=== PATIENT | female | born 2000 | race Caucasian/White ===

== ENCOUNTER 2024-08-06 00:18 | Emergency (ER) | payer MEDICAID ==
[~2024-08-06] VITALS: Ht 172.7 cm; Wt 85.3 kg
[2024-08-06 00:29] VITALS: BP 118/51; TEMP 36.8; O2SAT 100
[2024-08-06 00:53] VITALS: PULSE 75; O2SAT 100
[2024-08-06] MEDS: CYCLOBENZAPRINE 10MG TABLET PO NR (01:00)
[2024-08-06 02:20] VITALS: RESP 16
[2024-08-06] MEDS: IBUPROFEN 600MG TABLET PO NR (02:20)
[2024-08-06] MEDS ORDERED: CYCL5TAB3 MT (03:48)
[2024-08-06] MEDS ORDERED: IBUP-2029 MT (03:48)
== END 2024-08-06 04:12 | disposition home or self-care (01) ==
LOC: ER 00:18
DX: M25.511 Pain in right shoulder (principal); M54.31 Sciatica, right side; Z79.899 Other long term (current) drug therapy
CPT/HCPCS: 72040; 73030; 93005; 99283; 99284